=== PATIENT | female | born 1980 ===

== ENCOUNTER 2020-05-11 09:16 | Emergency (ER) | payer OTHER ==
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
== END 2020-05-11 10:20 | disposition home or self-care (01) ==
LOC: LL.ED 09:16
DX: Z04.1 Encounter for examination and observation following transport accident (principal)
CPT/HCPCS: 71045; 72170; 99284-25